=== PATIENT | female | born 1945 | race Caucasian/White ===

== ENCOUNTER 2018-04-02 10:51 | Emergency (ER) | payer OTHER ==
--- OUTSIDE RECORDS SUMMARY | 2018-04-02 10:53 | XMS REPORT | Summary of Care ---
:1945 Author Organization [facility] Address [address] [place] [id number]- Encounter HQ Ana_ham(FIN) [id number] Date(s): 08/13/17 - 08/14/[address] [address]- [phone] Vital Signs No data available for this section Problem List Condition Effective Dates Status Health Status Informant HTN (hypertension)(Confirmed) Active Poliomyelitis osteopathy of left Resolved forearm(Confirmed) Simple obesity(Confirmed) Active Allergies, Adverse Reactions, Alerts Substance Reaction Severity Status NKDA Active Medications No data available for this section Results No data available for this section Immunizations No data available for this section Procedures Procedure Date Related Diagnosis Body Site Status section Completed Operative procedure on lower leg1 Completed 112 procedures for polio on right leg Social History Social History Type Response Smoking Status Never smoker; Exposure to Tobacco Smoke None; Cigarette Smoking Last 365 Days No; Reg Smoking Cessation Counseling No entered on: 08/06/17 Assessment and Plan No data available for this section
--- OUTSIDE RECORDS SUMMARY | 2018-04-02 10:53 | XMS REPORT | Continuity of Care Document ---
:1945 Author Organization Interface Problems Problem Status Onset Classification Date Comments Source Date Reported HTN (<span Active Problem 11/21/2017 Medical ID="[id number]" Group >Confirmed</span> ) Poliomyelitis Resolved Problem 11/21/2017 Medical osteopathy of Group left forearm Simple obesity Active Problem 11/21/2017 Medical Group Medications Medication Details Route Status Patient Ordering Order Source Instructions Provider Date Hydrochlorothiazide See Active 25 MG Oral Tablet Instructio 018 Medical ns, TAKE Group TWO TABLET BY MOUTH ONCE DAILY, # 180 tab, 1 Refill(s), Pharmacy: [facility] lisinopril 40 mg oral 40 mg=1 Active tablet tab, PO, 018 Medical Daily, # Group 90 tab, 1 Refill(s), Pharmacy: [facility] Hydrochlorothiazide See No 25 MG Oral Tablet Instructio Longer 018 Medical ns, TAKE Active Group ONE TABLET BY MOUTH ONCE DAILY, # 90 tab, 1 Refill(s), Pharmacy: [facility] amLODIPine 10 mg oral 10 mg=1 Active tablet tab, PO, 018 Medical Daily, # Group 90 tab, 1 Refill(s), Pharmacy: [facility] Allergies, Adverse Reactions, Alerts Substance Category Reaction Severity Reaction Status Date Comments Source type Reported Immunizations Immunization Date Given Site Status Last Updated Comments Source Results Order Results Value Reference Date Interpretation Comments Source Name Range Vital Signs Vital Sign Value Date Comments Source Systolic (mm Hg) 165 08/06/2017 Medical Group Diastolic (mm Hg) 86 08/06/2017 Medical Group Weight 71.932 08/06/2017 Medical Group Height 152.4 cm 08/06/2017 Medical Group BMI Calculated 30.97 08/06/2017 Medical Group Systolic (mm Hg) 182 08/06/2017 Medical Group Diastolic (mm Hg) 98 08/06/2017 Medical Group Heart Rate 74 08/06/2017 Medical Group Respitory Rate 18 08/06/2017 Medical Group Temperature Oral (F) 98.5 F 08/06/2017 Medical Group Encounters Location Location Encounter Encounter Reason Attending ADM DC Status Source Details Type Number For Provider Date Date Visit Outpatient [id number] JERECIA 01/15 Active [facility] HAYES Delfin Outpatient [id number] JERECIA 01/22 Active [facility] HAYES Delavan Outpatient [id number] RUPERTO 01/29 Active [facility] Delfin Outpatient [id number] JERECIA 01/29 Active [facility] HAYES Delavan Outpatient [id number] JERECIA 02/12 Active [facility] HAYES Delavan Outpatient [id number] JERECIA 02/26 Active [facility] HAYES Delavan Outpatient [id number] JERECIA 04/16 Active [facility] HAYES Delavan Outpatient [id number] JERECIA 08/06 [facility] [id number] Jerecia 08/06 08/07 Primary Hayes /2017 [facility] Phone [phone] 08/13 08/15 Primary Message /2017 [facility] Procedures Procedure Code Date Perfomer Comments Source section [id number] Medical Group Operative [id number] procedures Medical procedure on for polio on Group lower right leg leg<sup>1</sup>
--- OUTSIDE RECORDS SUMMARY | 2018-04-02 10:53 | XMS REPORT | Summary of Care ---
:1945 Author Organization [facility] Address [address] [place] [address]- Encounter HQ Jerrell(CALE) [id number] Date(s): 08/06/17 - 08/06/[address] [address]- [phone] Discharge Disposition: Home or Self Care Attending Physician: Chio Snow MD Vital Signs Most recent to oldest [Reference Range]: 1 2 Height 152.4 cm (08/06/17 2:02 PM) Temperature Oral [96.4-99.1 DegF] 98.5 DegF (08/06/17 2:02 PM) Blood Pressure [90-140/60-90 mmHg] 165/86 mmHg 182/98 mmHg *HI* *HI* (08/06/17 2:27 PM) (08/06/17 2:02 PM) Respiratory Rate [14-20 BRMIN] 18 BRMIN (08/06/17 2:02 PM) Peripheral Pulse Rate [60-100 bpm] 74 bpm (08/06/17 2:02 PM) Weight 71.932 kg (08/06/17 2:02 PM) Body Mass Index 30.97 m2 (08/06/17 2:02 PM) Problem List Condition Effective Dates Status Health Status Informant HTN (hypertension)(Confirmed) Active Poliomyelitis osteopathy of left Resolved forearm(Confirmed) Simple obesity(Confirmed) Active Allergies, Adverse Reactions, Alerts Substance Reaction Severity Status NKDA Active Medications amLODIPine 10 mg oral tablet 10 mg=1 tab, PO, Daily, # 90 tab, 1 Refill(s), Pharmacy: [facility] Start Date: 08/06/17 Status: Orderedhydrochlorothiazide 25 mg oral tablet See Instructions, TAKE TWO TABLET BY MOUTH ONCE DAILY, # 180 tab, 1 Refill(s), Pharmacy: [facility] Start Date: 08/13/17 Status: Orderedhydrochlorothiazide 25 mg oral tablet See Instructions, TAKE ONE TABLET BY MOUTH ONCE DAILY, # 90 tab, 1 Refill(s), Pharmacy: [facility] Start Date: 08/06/17 Stop Date: 08/13/17 Status: Completedlisinopril 40 mg oral tablet 40 mg=1 tab, PO, Daily, # 90 tab, 1 Refill(s), Pharmacy: [facility] Start Date: 08/06/17 Status: Ordered Results No data available for this section [...]
--- OUTSIDE RECORDS SUMMARY | 2018-04-02 10:53 | XMS REPORT ---
:1945 Author Organization [facility] Address [address] Elizalde [address] [place] [address] Care Team Providers Name Role Phone DR NEIL WANG Unavailable Unavailable Problems This patient has no known problems. Allergies, Adverse Reactions, Alerts This patient has no known allergies or adverse reactions. Medications This patient has no known medications. Results Test Description Test Time Test Comments Text Results Atomic Results Result Comments XR KNEE RIGHT 3 2016-12-08 22:52:57 Exam: Right knee 3 views AP, lateral and VIEWS obliqueLocation: [id number]: fall, R knee painFindings:The bones are demineralized. Mild degenerative changes are present. No otherbone or joint abnormality is seen. The bony cortices are intact. A small jointeffusion is seen. The soft tissues are normal.Impression:Osteoarthritis.
--- OUTSIDE RECORDS SUMMARY | 2018-04-02 10:53 | XMS REPORT | Summary of Care ---
:1945 Author Organization [facility] Address [address] [place] [address]- Encounter HQ Jerrell(CALE) [id number] Date(s): 08/06/17 - 08/06/[address] [address]- [phone] Discharge Disposition: Home or Self Care Attending [...] Daily, # 90 tab, 1 Refill(s), Pharmacy: [facility] Start Date: 08/06/17 Status: Orderedhydrochlorothiazide 25 mg oral tablet See Instructions, TAKE TWO TABLET BY MOUTH ONCE DAILY, # 180 tab, 1 Refill(s), Pharmacy: [facility] Start Date: 08/13/17 Status: Orderedhydrochlorothiazide 25 mg oral tablet See Instructions, TAKE ONE TABLET BY MOUTH ONCE DAILY, # 90 tab, 1 Refill(s), Pharmacy: [facility] Start Date: 08/06/17 Stop Date: 08/13/17 Status: Completedlisinopril 40 mg oral tablet 40 mg=1 tab, PO, Daily, # 90 tab, 1 Refill(s), Pharmacy: [facility] Start Date: 08/06/17 Status: [...]
[2018-04-02] MEDS ORDERED: HYDROCODONE/APAP 5/325 MG TAB ONE (11:31)
--- NOTE | 2018-04-02 12:11 | RAD REPORT ---
EXAM DESCRIPTION: US - Extremity Venous Uni Ltd - 04/02/2018 12:03 pm CLINICAL HISTORY: Right leg pain and swelling COMPARISON: None. TECHNIQUE: Real-time sonographic evaluation of the right lower extremity deep venous systems was per formed. FINDINGS: Normal compressibility, flow augmentation, phasic flow and spontaneous flow are identified in the right lower extremity common femoral, superficial femoral, popliteal and posterior tibial vei ns. No intraluminal filling defects seen. IMPRESSION: No DVT in the right lower extremity.
--- NOTE | 2018-04-02 12:16 | RAD REPORT ---
EXAM DESCRIPTION: US - Lower Extremity Artery Uni Ltd - 04/02/2018 12:03 pm CLINICAL HISTORY: Lower extremity arterial disease, right foot cold to the touch COMPARISON: None. TECHNIQUE: Doppler evaluation of the arterial tree performed. Waveforms and velocity values were obt ained along with visual inspection. FINDINGS: Right common femoral artery demonstrates triphasic waveform pattern. The superficial femor al, popliteal and ankle artery's all show a biphasic waveform pattern. No occlusion of the major vess els seen. No flow restrictive lesion or stenosis identified on visual inspection. No significant athe rosclerotic change identifiable. Common femoral artery peak velocity was 112 cm/second tapering to 99 cm/second in the femoral artery and 62 cm per seconds in the popliteal artery. Posterior tibial artery and dorsalis pedis artery velo cities were 49 cm/second and 42 cm/second, respectively. IMPRESSION: Triphasic and biphasic waveform pattern along the length of the right lower extremity. N o occlusion or flow restrictive lesion identifiable.
[2018-04-02] MEDS ORDERED: LISINOPRIL 5 MG TAB ONE (12:47)
--- NOTE | 2018-04-02 13:11 | RAD REPORT ---
EXAM DESCRIPTION: RAD - Pelvis - 04/02/2018 12:55 pm CLINICAL HISTORY: Fall, pelvic and hip pain COMPARISON: None. TECHNIQUE: AP imaging of the pelvis was obtained. FINDINGS: Right hemipelvis atrophy and proximal right femur atrophy present when compared with the l eft. No history is noted. Patient may have a far remote polio history or similar neuromuscular disord er that would would result in the atrophy pattern. No fracture or acute bone process identifiable. Fe moral head maintains smooth rounded contour on the right. No dislocation AVN or focal femoral head pr ocess. Lower lumbar degenerative changes are present only partially imaged. IMPRESSION: No fracture or acute bone finding. Right pelvic lyly atrophy and right femur atrophy from far remote polio or similar neuromuscular diso rder.
--- NOTE | 2018-04-02 13:12 | RAD REPORT ---
EXAM DESCRIPTION: RAD - Hip Right 2 View - 04/02/2018 12:55 pm CLINICAL HISTORY: Fall, hip pain COMPARISON: None. FINDINGS: AP and frog-leg views of the right hip were obtained. There is no fracture or dislocation . No AVN or focal femoral head abnormality. There is atrophy of the proximal right femur and right h emipelvis. Correlation is needed with any prior history of polio or similar neuromuscular disorder. IMPRESSION: No fracture, dislocation or acute finding.
--- NOTE | 2018-04-02 13:13 | RAD REPORT ---
EXAM DESCRIPTION: RAD - Hip Left 2 View - 04/02/2018 12:55 pm CLINICAL HISTORY: Fall, hip pain COMPARISON: None. FINDINGS: AP and frogleg views of the left hip were obtained. There is no fracture or dislocation. N o AVN or focal femoral head abnormality. Degenerative changes are present with heterotopic bone along the superior margin of the greater trochanter. Partially imaged SI joint shows degenerative change. No periarticular mass or hematoma. IMPRESSION: Degenerative changes are present to the greater trochanter. No fracture or acute left hi p joint finding.
--- NOTE | 2018-04-02 13:17 | RAD REPORT ---
EXAM DESCRIPTION: RAD - Ankle Right 3 View - 04/02/2018 12:55 pm CLINICAL HISTORY: Leg pain following fall COMPARISON: None. FINDINGS: Bones are osteopenic in atrophic. There is cortical irregularity and remodeling change rajeev und the distal shaft fibula. Periosteal thickening is seen on the frontal and oblique projection. The re is some cortical irregularity in elevated periosteum on the lateral projection. A soft tissue mass component is not identified. No fracture at the ankle joint. Bony fusion across the subtalar joint s pace noted. There is probable calcaneus -cuboid fusion as well. No plantar spur. Soft tissues appear congested or edematous. Baseline for the patient is unknown. IMPRESSION: Osteopenic an atrophic bony changes are present with chronic subtalar fusion and calcane al cuboid fusion. An acute fracture is not identified. Bony remodeling changes in the distal fibula shaft by slightly a ggressive appearance on the lateral projection. No prior imaging is available for comparison. No soft tissue mass is seen associated with the distal right fibula finding. Thin section CT imaging or MR imaging could be performed to evaluate for bony changes and any possible soft tissue mass compo nent.
--- NOTE | 2018-04-02 13:20 | RAD REPORT ---
EXAM DESCRIPTION: RAD - Foot Right 3 View - 04/02/2018 12:55 pm CLINICAL HISTORY: Pain following fall the in COMPARISON: None. FINDINGS: No fracture, dislocation or periosteal reaction. Bones are osteopenic as well is atrophic. Degenerative change present at the first MTP joint with met atarsal head flattening. Pathologic bone process is not seen. Soft tissue swelling is present with ba seline for the patient unknown. An acute fracture is not identified. Bony fusion across the subtalar joint space is seen. There is evidence for fusion to the cuboid bone and navicular. No air or foreign body in the soft tissues. IMPRESSION: Osteopenic and atrophic bony changes are present with no acute fracture changes seen.
--- NOTE | 2018-04-02 14:13 | RAD REPORT ---
EXAM DESCRIPTION: CT - Low Extremity Wo Cont - 04/02/2018 1:55 pm CLINICAL HISTORY: Fall, leg pain, exam findings out of proportion to imaging findings, abnormal fibu la on plain film COMPARISON: Pelvis hip and leg films same date TECHNIQUE: Axial 2 millimeter thick images of the right lower extremity obtained from mid pelvis thr ough the ankle. Sagittal and coronal reformatted images were generated and reviewed. The CT scan was performed using dose optimization techniques as appropriate to a performed exam incl uding one or more of the following: Automated exposure control, adjustment of the mA and/or kV accord ing to patient size (this includes techniques or standardized protocols for targeted exams where dose is matched to indication/reason for exam) and use of iterative reconstruction technique. FINDINGS: Minimal degenerative change involves the acetabulum. No AVN or focal femoral head abnormal ity. There is no dislocation of the femoral head or fracture of the femoral neck. No joint effusion o r significant hip joint abnormality suspected. No fracture or acute finding of the femur, patella for tibia. Bony fusion is seen between the talus-c alcaneus, talus - navicular and calcaneus -cuboid. Plain film showed questionable cortical disruption and periosteal changes in the posterior aspect of the distal fibula shaft. This area is better imaged on CT imaging. There is no cortical disruption. T he possible periosteal changes are calcifications related to fascia attachment to the fibula. There i s no soft tissue mass component. No destructive change. This is not an acute finding and does not war rant any additional monitoring or follow-up. Patient has overall bony atrophy and complete muscle atrophy related to remote history of polio. Ther e is congestion and edema of the subcutaneous fat that extends from the proximal tibial level through the ankle. This congestion or edema pattern does not extend deep to the surrounding muscle fascia bu t remains in place. No air, calcification or foreign body within the subcutaneous fatty tissues. IMPRESSION: The fibula plain film finding represents benign calcifications at the fascia attachment site to the distal fibula. There is no soft tissue mass, bone destruction or other aggressive finding . No further follow-up or evaluation needed. Nonspecific congestion or edema in the subcutaneous fatty tissues of the right leg from proximal tibi a level through the ankle. No air or foreign body in the soft tissues. Bone and muscle atrophy related to chronic polio history.
--- NOTE | 2018-04-02 14:16 | ER ---
Nurse's Notes [facility] Name: Tiarra Persaud Age: 72 yrs Sex: Female : 1945 Arrival Date: 04/02/2018 Time: 10:53 Bed 19 Private MD: None, None Diagnosis: Sprain of hip Presentation: 04/02 11:04 Presenting complaint: Patient states: Pain to right leg after fall from standing aj yesterday. Swelling and inflammation to right foot. Patient reports pain in entire leg. Care prior to arrival: None. Mechanism of Injury: Fall from standing position. Trauma event details: Injury occurred in the [facility], Injury occurred: at home. Injury occurred: April 01, 2018. 11:04 Acuity: KG 2 aj 11:04 Method Of Arrival: Wheelchair aj 11:29 Transition of care: patient was not received from another setting of care. Onset of jl7 symptoms was April 01, 2018. Risk Assessment: Do you want to hurt yourself or someone else? Patient reports no desire to harm self or others. Initial Sepsis Screen: Does the patient meet any 2 criteria? No. Patient's initial sepsis screen is negative. Does the patient have a suspected source of infection? No. Patient's initial sepsis screen is negative. Trauma Activation: Not Applicable Physician: ED Physician; Name: ; Notified At: ; Arrived At: Physician: General Surgeon; Name: ; Notified At: ; Arrived At: Physician: Radiology; Name: ; Notified At: ; Arrived At: Physician: Respiratory; Name: ; Notified At: ; Arrived At: Physician: Lab; Name: ; Notified At: ; Arrived At: Historical: - Allergies: 11:09 No Known Allergies; aj - Home Meds: 11: Unknown BP medicaiton [Active]; aj - PMHx: 11:09 Hypertension; polio; aj - PSHx: 11:09 ; aj - Immunization history: Last tetanus immunization: - up to date. - Social history:: Smoking status: Patient/guardian denies using tobacco. - Ebola Screening: : Patient negative for fever greater than or equal to 101.5 degrees Fahrenheit, and additional compatible Ebola Virus Disease symptoms Patient denies exposure to infectious person Patient denies travel to an Ebola-affected area in the 21 days before illness onset No symptoms or risks identified at this time. Screenin:27 Abuse screen: Denies threats or abuse. Denies injuries from another. Nutritional jl7 screening: No deficits noted. Tuberculosis screening: No symptoms or risk factors identified. 11:29 Fall Risk Fall in past 12 months (25 points). Secondary diagnosis (15 points) impaired jl7 mobility, No IV (0 pts). Ambulatory Aid- Crutches/Cane/Walker (15 pts). Gait- Impaired (20 pts.). Mental Status- Oriented to own ability (0 pts). Total Joyce Fall Scale indicates High Risk Score (45 or more points). Fall prevention measures have been instituted. Side Rails Up X 2 Placed Close to Nursing Station Frequent Obs/Assessments Occuring Family Present and informed to notify staff if the need to leave the bedside As available patient and family educated on Fall Prevention Program and Strategies. Primary Survey: 11:04 A: Airway: patent. Breathing/Chest: Respiratory pattern: regular, Respiratory effort: aj spontaneous, unlabored, Breath sounds: clear, bilaterally. Chest inspection: symmetrical rise and fall of the chest. Circulation: Skin color: pink. Disability Alert. 11:27 Reassessment Airway Airway Patent Breathing/Chest Respiratory pattern Regular jl7 Respiratory effort Spontaneous Unlabored Chest inspection Symmetrical Circulation Color Acorn Disability Alert. Secondary Survey: 11:27 HEENT: No deficits noted. Gastrointestinal: No deficits noted. : No deficits noted. jl7 Musculoskeletal: Range of motion: limited in right hip, right knee and right ankle Swelling present in right foot. Assessment: 11:04 General: Appears in no apparent distress. comfortable, Behavior is calm, cooperative, aj appropriate for age. Pain: Complains of pain in right leg. Neuro: Level of Consciousness is awake, alert, obeys commands, Oriented to person, place, time, situation, Appropriate for age. Respiratory: Airway is patent Respiratory effort is even, unlabored, Respiratory pattern is regular, symmetrical. Derm: Skin is intact, is healthy with good turgor, Skin is pink, warm \T\ dry. normal. Derm: Redness to right foot. Musculoskeletal: Reports pain in right leg. Musculoskeletal: Patient has deformity to right leg from polio. 12:00 Reassessment: Patient appears in no apparent distress at this time. Patient and/or jl7 family updated on plan of care and expected duration. Pain level reassessed. Patient is alert, oriented x 3, equal unlabored respirations, skin warm/dry/pink. 13:00 Reassessment: No changes from previously documented assessment. Patient and/or family jl7 updated on plan of care and expected duration. Pain level reassessed. Patient is alert, oriented x 3, equal unlabored respirations, skin warm/dry/pink. Vital Signs: 11:04 BP 222 / 100; Pulse 74; Resp 19; Temp 98.9; Pulse Ox 95% on R/A; Weight 72.57 kg; aj Height 5 ft. 0 in. (152.40 cm); 11:43 BP 163 / 129; Pulse 79; Resp 16 S; Pulse Ox 98% on R/A; jl7 12:00 BP 195 / 91; Pulse 68; Resp 16 S; Pulse Ox 97% on R/A; jl7 12:30 BP 206 / 189; Pulse 75; Resp 16 S; Pulse Ox 97% on R/A; jl7 13:00 BP 181 / 88; Pulse 73; Resp 16 S; Pulse Ox 97% on R/A; jl7 14:00 BP 180 / 87; Pulse 72; Resp 16 S; Pulse Ox 100% on R/A; jl7 15:05 BP 182 / 88; Pulse 73; Resp 16 S; Pulse Ox 100% on R/A; jl7 11:04 Body Mass Index 31.25 (72.57 kg, 152.40 cm) aj Shy Coma Score: 11:04 Eye Response: spontaneous(4). Verbal Response: oriented(5). Motor Response: obeys aj commands(6). Total: 15. Trauma Score (Adult): 11:04 Eye Response: spontaneous(1); Verbal Response: oriented(1); Motor Response: obeys aj commands(2); Systolic BP: > 89 mm Hg(4); Respiratory Rate: 10 to 29 per min(4); Shy Score: 15; Trauma Score: 12 ED Course: 10:53 Patient arrived in ED. mr 10:53 None, None is Private Physician. mr 11:03 Erasmo Thomson PA is PHCP. jm 11:03 Ignacio Reed MD is Attending Physician. [facility] 11:03 Rita Castillo RN is Primary Nurse. jl 11:06 Triage completed. aj 11:09 Arm band placed on left wrist. Patient placed in an exam room. aj 11:27 Patient has correct armband on for positive identification. Bed in low position. Call jl7 light in reach. Side rails up X 1. 11:27 Patient maintains SpO2 saturation greater than 95% on room air. Thermoregulation: warm jl7 blanket given to patient. 12:01 US Lower Extremity Artery Uni Ltd In Process Unspecified. EDMS 12:01 US Extremity Venous Unilateral Ltd In Process Unspecified. EDMS 12:28 X-ray completed. Patient tolerated procedure well. Patient moved back from radiology. jb2 12:55 Ankle Right 3 View XRAY In Process Unspecified. EDMS 12:55 Foot Right 3 View XRAY In Process Unspecified. EDMS 12:55 Pelvis XRAY In Process Unspecified. EDMS 12:55 Hip Right 2 View XRAY In Process Unspecified. EDMS 12:55 Hip Left 2 View XRAY In Process Unspecified. EDMS 13:52 CT completed. Patient tolerated procedure well. Patient moved to CT via stretcher. mw3 Patient moved back from CT. 13:55 Low Extremity Wo Cont In Process Unspecified. EDMS 14:15 Kashif Beavers MD is Referral Physician. m 15:06 No provider procedures requiring assistance completed. Patient did not have IV access jl7 during this emergency room visit. Administered Medications: 11:27 Drug: Merced 5 mg-325 mg 1 tabs Route: PO; jl7 12:30 Follow up: Response: No adverse reaction; Pain is decreased jl7 12:44 Drug: Lisinopril 7.5 mg Route: PO; jl7 13:45 Follow up: Response: No adverse reaction; Blood pressure is lowered jl7 Intake: 15:01 PO: 0ml; Total: 0ml. jl7 Output: 15:01 Urine: 0ml; Total: 0ml. jl7 Outcome: 13:33 Patient's length of stay in the Emergency Department was greater than 2 hours. Awaiting jl7 resultsPatient's length of stay extended due to 14:16 Discharge ordered by . jmm 15:06 Discharged to home with family. jl7 15:06 Condition: stable 15:06 Discharge instructions given to patient, family, Instructed on discharge instructions, follow up and referral plans. medication usage, Demonstrated understanding of instructions, follow-up care, medications, Prescriptions given X 1. 15:07 Patient left the ED. jl7 Signatures: Dispatcher [employer] Louisa Cadet, Erasmo Chacon RN, PA PA jmm Rivera, Mary mr Buechter, Jesse jb2 Leal, Jahala, RN RN jlEthel Reinoso 3
--- NOTE | 2018-04-02 14:16 | EDPHYS ---
Physician Documentation [facility] Name: Tiarra Persaud Age: 72 yrs Sex: Female : 1945 Arrival Date: 04/02/2018 Time: 10:53 Bed 19 Private MD: None, None ED Physician Ignacio Reed HPI: 04/02 11:27 This 72 yrs old Female presents to ER via Wheelchair with complaints of Fall jmm Injury. 11:27 Details of fall: The patient fell from an upright position. Onset: The symptoms/episode jmm began/occurred acutely, last night. Associated injuries: The patient sustained right foot, right hip. This is a 72 year old female with a history of HTN and polio that presents to the ED with right hip pain and right foot pain. patient states she tripped yesterday, with increased swelling to her right foot today. . Historical: - Allergies: 11:09 No Known Allergies; aj - Home Meds: 11:09 Unknown BP medicaiton [Active]; aj - PMHx: 11:09 Hypertension; polio; aj - PSHx: 11:09 ; aj - Immunization history: Last tetanus immunization: - up to date. - Social history:: Smoking status: Patient/guardian denies using tobacco. - Ebola Screening: : Patient negative for fever greater than or equal to 101.5 degrees Fahrenheit, and additional compatible Ebola Virus Disease symptoms Patient denies exposure to infectious person Patient denies travel to an Ebola-affected area in the 21 days before illness onset No symptoms or risks identified at this time. ROS: 11:27 Constitutional: Negative for fever, chills, and weight loss, Eyes: Negative for injury, jmm pain, redness, and discharge, Cardiovascular: Negative for chest pain, palpitations, and edema, Respiratory: Negative for shortness of breath, cough, wheezing, and pleuritic chest pain. 11:27 MS/extremity: Positive for pain, swelling. 11:27 All other systems are negative. Exam: 11:27 Head/Face: atraumatic. Eyes: EOMI, no conjunctival erythema appreciated ENT: Moist jmm Mucus Membranes Neck: Trachea midline, Supple Chest/axilla: Normal chest wall appearance and motion. Cardiovascular: Regular rate and rhythm. No edema appreciated Respiratory: Normal respirations, no respiratory distress appreciated Abdomen/GI: Non distended, soft Back: Normal ROM 11:27 Constitutional: The patient appears in no acute distress, alert, awake. 11:27 Musculoskeletal/extremity: ROM: intact in all extremities, swelling appreciated to the right lower leg. right hip pain on flexion. 11:27 Skin: Appearance: Color: normal in color. 11:27 Neuro: Orientation: is normal, Mentation: is normal, Memory: is normal. Vital Signs: 11:04 BP 222 / 100; Pulse 74; Resp 19; Temp 98.9; Pulse Ox 95% on R/A; Weight 72.57 kg; aj Height 5 ft. 0 in. (152.40 cm); 11:43 BP 163 / 129; Pulse 79; Resp 16 S; Pulse Ox 98% on R/A; jl7 12:00 BP 195 / 91; Pulse 68; Resp 16 S; Pulse Ox 97% on R/A; jl7 12:30 BP 206 / 189; Pulse 75; Resp 16 S; Pulse Ox 97% on R/A; jl7 13:00 BP 181 / 88; Pulse 73; Resp 16 S; Pulse Ox 97% on R/A; jl7 14:00 BP 180 / 87; Pulse 72; Resp 16 S; Pulse Ox 100% on R/A; jl7 15:05 BP 182 / 88; Pulse 73; Resp 16 S; Pulse Ox 100% on R/A; jl7 11:04 Body Mass Index 31.25 (72.57 kg, 152.40 cm) aj Goshen Coma Score: 11:04 Eye Response: spontaneous(4). Verbal Response: oriented(5). Motor Response: obeys aj commands(6). Total: 15. Trauma Score (Adult): 11:04 Eye Response: spontaneous(1); Verbal Response: oriented(1); Motor Response: obeys aj commands(2); Systolic BP: > 89 mm Hg(4); Respiratory Rate: 10 to 29 per min(4); Gos[place] Score: 15; Trauma Score: 12 MDM: 11:05 Patient medically screened. [facility] 11:37 Data reviewed: vital signs, nurses notes. [facility] 14:15 Counseling: I had a detailed discussion with the patient and/or guardian regarding: the [facility] historical points, exam findings, and any diagnostic results supporting the discharge/admit diagnosis, the need for outpatient follow up, to return to the emergency department if symptoms worsen or persist or if there are any questions or concerns that arise at home. 14:15 Data reviewed: radiologic studies, plain films. [facility] 14:15 Data interpreted: Pulse oximetry: on room air is 100 %. Response to treatment: the fabiana patient's symptoms have markedly improved after treatment. 04/02 11:26 Order name: Ankle Right 3 View XRAY; Complete Time: 13:22 [facility] 04/02 11:26 Order name: Foot Right 3 View XRAY; Complete Time: 13:22 [facility] 04/02 11:26 Order name: US Lower Extremity Artery Uni Ltd; Complete Time: 12:27 [facility] 04/02 11:26 Order name: US Extremity Venous Unilateral Ltd; Complete Time: 12:27 [facility] 04/02 11:51 Order name: Pelvis XRAY; Complete Time: 13:22 [facility] 04/02 11:51 Order name: Hip Right 2 View XRAY; Complete Time: 13:22 [facility] 04/02 11:51 Order name: Hip Left 2 View XRAY; Complete Time: 13:22 [facility] 04/02 13:33 Order name: Low Extremity Wo Cont; Complete Time: 14:14 EDMS Administered Medications: 11:27 Drug: [place] 5 mg-325 mg 1 tabs Route: PO; jl7 12:30 Follow up: Response: No adverse reaction; Pain is decreased jl7 12:44 Drug: Lisinopril 7.5 mg Route: PO; jl7 13:45 Follow up: Response: No adverse reaction; Blood pressure is lowered jl7 Disposition: 17:51 Co-signature as Attending Physician, Ignacio Reed MD. rn Disposition: 04/02/18 14:16 Discharged to Home. Impression: Sprain of hip. - Condition is Stable. - Discharge Instructions: Hip Pain. - Prescriptions for Tylenol- Codeine #3 300-30 mg Oral Tablet - take 1 tablet by ORAL route every 6 hours As needed; 12 tablet. - Medication Reconciliation Form, Thank You Letter, Antibiotic Education, Prescription Opioid Use form. - Follow up: Kashif Beavers MD; When: 2 - 3 days; Reason: Recheck today's complaints, Continuance of care, Re-evaluation by your physician. Signatures: Dispatcher [employer] EDMS Louisa Hamm, RN Erasmo Chacon PA PA jmm Nieto, Roman, MD MD rn Leal, Jahala, RN RN jl7 Corrections: (The following items were deleted from the chart) 15:07 14:16 04/02/2018 14:16 Discharged to Home. Impression: Sprain of hip. Condition is jl7 Stable. Forms are Medication Reconciliation Form, Thank You Letter, Antibiotic Education, Prescription Opioid Use. Follow up: Kashif Beavers; When: 2 - 3 days; Reason: Recheck today's complaints, Continuance of care, Re-evaluation by your physician. [facility]iana
== END 2018-04-02 15:07 | disposition home or self-care (01) ==
LOC: ER 10:51
DX: S73.101A Unspecified sprain of right hip, initial encounter (principal); W01.0XXA Fall on same level from slipping, tripping and stumbling without subsequent striking against object, initial encounter; Y93.9 Activity, unspecified; Y92.9 Unspecified place or not applicable; I10 Essential (primary) hypertension
CPT/HCPCS: 72170; 73700; 93926; 93971; 99284